=== PATIENT | female | born 1955 | race Caucasian/White ===

== ENCOUNTER 2017-03-18 14:51 | Emergency (ER) | payer OTHER ==
[~2017-03-18] VITALS: Ht 157.5 cm; Wt 45.0 kg
[~2017-03-18 14:51] MED LIST: ALENDRONATE70 MG PO; AMITRIPTYLIN25 MG PO; AMOX/K CLAV875 M1 PO; AMOXICILLIN/CL875 MG PO; AMOXICILLIN500 MG OR; AUGMENTIN875TAB PO; BACTRIM DS1 TAB PO; BONIVA150 MG OR; CIPRO500 MG OR; CIPRO500 MG PO; CIPROFLOXACN500 MG PO; CRESTOR10 MG OR; CRESTOR10 MG PO; CRESTOR20 MG PO; DARVOCET-N 100100 MG OR; DEPO-MEDROL80 MG/ML IM; DOXYCYCL HYC100 M1 OR; DOXYCYCL HYC100 MG PO; FLEXERIL10 MG PO; FLEXERIL5 M1 PO; FLUZONE SPLT1 M1 IM; KEFLEX500 M1 PO; KEFLEX500 MG PO; LORTAB 5 OR; LORTAB5 PO; MEDDOSEPAK PO; MELOXICAM7.5 MG PO; MOBIC7.5 MG PO; MUPIROCIN2 % EX; PRAVASTATIN SOD20 MG PO; PRAVASTATIN20 MG PO; PROAIR HFA IN; RANITIDINE150 M1 PO; SERAQUIL; SEROQUEL25 MG PO; SOLU-MEDROL125 MG IM; SYMBICORT1 AE1 IN; TESSALON200 MG PO; TRAMADOL HYDROC50 MG PO; TRIAMINIC COLD & COU PO; ULTRAM50 M1 PO; ZANTAC SYRUP15 MG/ML PO; ZANTAC150 M1 OR; ZANTAC150 M1 PO; ZANTAC150 M2 OR; ZITHROMAX250 MG PO; ZOFRAN ODT4 MG PO
[2017-03-18] MEDS ORDERED: BACTRIM DS1 TAB PO (15:11)
[2017-03-18] MEDS ORDERED: TRAMADOL HYDROC50 MG PO (15:11)
[2017-03-18 15:35] VITALS: BP 123/60
== END 2017-03-18 15:40 | disposition home or self-care (01) | DRG 603 ==
LOC: ED 14:51
PROC: 0H98XZZ Drainage of Buttock Skin, External Approach (ICD-10-PCS; principal; 2017-03-18)
DX: L02.31 Cutaneous abscess of buttock (principal); K27.9 Peptic ulcer, site unspecified, unspecified as acute or chronic, without hemorrhage or perforation; E78.5 Hyperlipidemia, unspecified; K21.9 Gastro-esophageal reflux disease without esophagitis; J45.909 Unspecified asthma, uncomplicated; F17.210 Nicotine dependence, cigarettes, uncomplicated

== ENCOUNTER 2017-03-19 20:00 | Emergency (ER) | payer OTHER ==
[~2017-03-19] VITALS: Ht 157.5 cm; Wt 57.0 kg
[2017-03-19 20:37] VITALS: BP 128/93
== END 2017-03-19 20:45 | disposition home or self-care (01) | DRG 603 ==
LOC: ED 20:00
DX: L02.31 Cutaneous abscess of buttock (principal); E78.5 Hyperlipidemia, unspecified; K21.9 Gastro-esophageal reflux disease without esophagitis; F17.210 Nicotine dependence, cigarettes, uncomplicated

== ENCOUNTER 2017-11-29 10:44 | Emergency (ER) | payer OTHER ==
[~2017-11-29] VITALS: Ht 157.5 cm; Wt 59.0 kg
[2017-11-29 13:35] LABS: INFLUENZA A NONE DETECTED (NONE DETECT); INFLUENZA B NONE DETECTED (NONE DETECT)
[2017-11-29 13:37] LABS: ALBUMIN 3.8 g/dL (3.2-5.0); ALKALINE PHOSPHATASE 79 u/l (38-126); ANION GAP 17 (6-22 (CALC)); BILIRUBIN, TOTAL 0.5 mg/dL (0.0-1.4); BUN 18 mg/dL (8-23); BUN/CREATININE RATIO 23 (12-20 (CALC)); CARBON DIOXIDE 24 mmol/l (22-30); CHLORIDE 108 mmol/l (95-108); CREATININE 0.8 mg/dL (0.5-1.0); GFR > 60 ML/MIN (>=60 (CALC)); GFR FOR AFR.AMER. > 60 ML/MIN (>=60 (CALC)); GLUCOSE 117 mg/dL (82-115); POTASSIUM 4.8 mmol/l (3.5-5.1); SGOT/AST 39 u/l (9-36); SGPT/ALT 42 u/l (11-66); SODIUM 144 mmol/l (137-146); TOTAL PROTEIN 6.6 g/dL (6.3-8.2)
[2017-11-29 13:42] LABS: RED BLOOD COUNT 4.15 mill/uL (4.20-5.60)
[2017-11-29 13:43] LABS: HEMATOCRIT 37.7 % (37.0-47.0); HEMOGLOBIN 12.5 g/dl (12.0-16.0); LYMPH% 22 % (15-41); MEAN CELL VOLUME 90.8 fL CALC (80.0-100.0); MEAN CORPUSCULAR HGB 30.1 pG CALC (26.0-32.0); MEAN CORPUSCULAR HGB CONC 33.2 g/L CALC (32.0-36.0); MONO% 9 % (2-13); NEUT% 69 % (42-76); PLATELET COUNT 411 thou/uL (130-400)
[2017-11-29] MEDS ORDERED: DOXYCYC MONO100 M2 PO (14:24)
[2017-11-29 14:35] VITALS: BP 125/92
== END 2017-11-29 14:35 | disposition home or self-care (01) | DRG 202 ==
LOC: ED 10:44
PROVIDERS: Family Medicine
DX: J20.9 Acute bronchitis, unspecified (principal); J44.0 Chronic obstructive pulmonary disease with (acute) lower respiratory infection; F17.210 Nicotine dependence, cigarettes, uncomplicated; R09.81 Nasal congestion; R06.02 Shortness of breath; Z72.89 Other problems related to lifestyle

== ENCOUNTER 2017-12-01 02:16 | Inpatient (IN) | payer OTHER ==
[~2017-12-01] VITALS: Ht 157.5 cm; Wt 60.0 kg
[~2017-12-01 02:16] MED LIST changes: +DOXYCYC MONO100 M2 PO
--- NOTE | 2017-12-01 02:18 | NUR ---
PATIENT TO ROOM 14 VIA EMS STRETCHER. PATIENT UNDRESSED INTO A GOWN, PLACED ON MONITOR. TRIAGE COMPELETED AT BEDSIDE. AWAITING MD HINTON.
--- NOTE | 2017-12-01 02:19 | NUR ---
PT. WITH C/O FEELING SOB SINCE THE LAST HURRICIANE. O2 SAT ON RA 84-85%. BILATERAL LUNG COTTER ARE RALES RHONCHI AND WHEEZES. PT. STATES SHE QUIT SMOKING APPROX. 2 DAYS AGO.
[2017-12-01 02:52] LABS: HEMATOCRIT 42.6 % (37.0-47.0); HEMOGLOBIN 13.7 g/dl (12.0-16.0); IMMATURE GRANULOCYTES 0.3 % (0.0-1.0); MEAN CELL VOLUME 90.6 fL CALC (80.0-100.0); MEAN CORPUSCULAR HGB 29.1 pG CALC (26.0-32.0); MEAN CORPUSCULAR HGB CONC 32.2 g/L CALC (32.0-36.0); NEUT# 7.25 thou/uL (2.00-7.15); RED BLOOD COUNT 4.7 mill/uL (4.20-5.60); RED CELL DISTRI WIDTH 14.3 % (11.5-15.5)
--- NOTE | 2017-12-01 02:53 | NUR ---
iv solu-medrol given as per md order.
--- NOTE | 2017-12-01 02:56 | NUR ---
RESP. THERAPIST IN ROOM TO ADMINISTER BREATHING TX.
--- NOTE | 2017-12-01 02:56 | NUR ---
BGREATHING TREATMENT GIVEN. BREATHING TECH. FOR GOOD DEPOSITION TO THE LUNGS.
[2017-12-01 02:59] LABS: ALBUMIN 4.3 g/dL (3.2-5.0); ALKALINE PHOSPHATASE 87 u/l (38-126); ANION GAP 18 (6-22 (CALC)); BILIRUBIN, TOTAL 0.5 mg/dL (0.0-1.4); BUN 20 mg/dL (8-23); BUN/CREATININE RATIO 23 (12-20 (CALC)); CALCIUM 9.6 mg/dL (8.4-10.2); CARBON DIOXIDE 19 mmol/l (22-30); CHLORIDE 112 mmol/l (95-108); CREATININE 0.9 mg/dL (0.5-1.0); GFR > 60 ML/MIN (>=60 (CALC)); GFR FOR AFR.AMER. > 60 ML/MIN (>=60 (CALC)); GLUCOSE 139 mg/dL (82-115); POTASSIUM 4.2 mmol/l (3.5-5.1); SGOT/AST 65 u/l (9-36); SGPT/ALT 57 u/l (11-66); SODIUM 145 mmol/l (137-146); TOTAL PROTEIN 7.6 g/dL (6.3-8.2)
--- NOTE | 2017-12-01 03:00 | NUR ---
HARSH PRODUCTIVE COUGH NOTED AT THIS TIME.
[2017-12-01 03:08] LABS: MYOGLOBIN 70 ng/mL (0 - 62)
--- NOTE | 2017-12-01 03:22 | NUR ---
PT. PLACED ON 2 LIT/NC. O2 SAT 94% AT THIS TIME.
--- NOTE | 2017-12-01 04:08 | NUR ---
IV ABT'S STARTED PER MD ORDER.
--- NOTE | 2017-12-01 04:18 | NUR ---
Admission Note Report Given to: CHINTAN GONZÁLES Transported by: Wheelchair X Stretcher Transported with: X Nurse Transporter X Patent IV X O2 X Process Lead
--- NOTE | 2017-12-01 04:25 | NUR ---
PT. TRANSFERED TO ICU BED 6, IV ABT. INFUSING WELL, NO REDNESS OR EDEMA NOTED.
--- NOTE | 2017-12-01 04:30 | NUR ---
RECEIVED FROM ER VIA STRETCHER ACCOMPANIED BY JIMENA MARIE, AMBULATING TO STANDING SCALE THEN TO BED WITH STEADY GAIT A/O X3. O2 @2L VIA NC, BREATHING THROUGH MOUTH, ENCOURAGED TO BREATH TRHOUGH NOSE AND OUT THROUGH MOUTH, RESPIRATIONS 24, O2 SAT 94%. ZITHROMAX INFUSING TO LAC WITH NO COMPLICATIONS. ORIENTED TO BED CONTROLS AND CALL LIGHT FOR ASSISTANCE. DX PNEUMONIA, LUNG SOUNDS CORSE IN THE BASES BILAT. PO FLUIDS IN REACH. C/O INDIGESTION ORDERS FOR [place] RECEIVED.
[2017-12-01 04:44] VITALS: BP 148/95
--- NOTE | 2017-12-01 05:30 | NUR ---
SENIOR FORMULATION SCIENTIST ATTEMPTED TO DRAW BLOOD CULTURES AND LACTIC ACID WITH NO SUCCESS, THIS WRITTER STUCK PT X1 NO SUCCESS, NO RN ALSO ATTEMPTED WITH NO SUCCESS. PT IS ANXIOUS C/O INDIGESTION REQUESTING THAT BLOOD BE DRAWN AT A LATER TIME WHEN SHE IS CALM. MAALOX PROVIDED AT 0537, WILL CONTINUE TO MONITOR.
[2017-12-01 07:20] VITALS: BP 137/93
--- NOTE | 2017-12-01 07:20 | NUR ---
PT LAYING IN BED RESTING WITH EYES CLOSED, AROUSES EASILY TO VERBAL STIMULI, PT DENIES ANY PAIN, RESP. EVEN AND UNLABORED, AFEBRILE TEMP 98, HR 84, RESP. 20, BP 137/93, O2 92% ON 2L VIA NC, COARSE LUNG SOUNDS IN ALL COTTER, STRONG RADIAL PULSES, WEAK PEDAL PULSES, 20G LAC IV SALINE LOCKED, AM ASSESSMENT COMPLETE, SEE INTERVENTIONS, SAFETY MEASURES REINFORCED, CALL CUEVAS WITHIN REACH
--- NOTE | 2017-12-01 07:25 | NUR ---
LAB AT BEDSIDE
--- NOTE | 2017-12-01 07:30 | NUR ---
SETUP ASSISTANCE PROVIDED WITH ANDREE JONES
--- NOTE | 2017-12-01 08:20 | NUR ---
PT REPEATEDLY REMOVES O2, PT EDUCATED ON THE IMPORTANCE OF THE O2, PT VERBALIZES UNDERSTANDING, WILL REINFORCE NEEDED
[2017-12-01 08:27] LABS: CHOLESTEROL HDL RATIO 3.5 (<4.4 (CALC))
--- NOTE | 2017-12-01 09:10 | NUR ---
DR WOODALL AT BEDSIDE DISCUSSING PLAN OF CARE
--- NOTE | 2017-12-01 09:45 | NUR ---
VISITOR AT BEDSIDE
--- NOTE | 2017-12-01 10:15 | NUR ---
PT TO CT VIA WC ACCOMPANIED BY NURSE AND HIP HOP DANCE INSTRUCTOR
--- NOTE | 2017-12-01 10:30 | NUR ---
PT RETURNED TO THE UNIT VIA WC ACCOMPANIED BY NURSE
--- NOTE | 2017-12-01 11:35 | NUR ---
SETUP ASSISTANCE PROVIDED WITH ANDREE JONES
[2017-12-01 12:00] VITALS: BP 136/94
--- NOTE | 2017-12-01 12:35 | NUR ---
PT ASSISTED WITH MINIMAL ASSISTANCE TO THE BSC, PT COMPLAINS OF SOB DISPLAYING NO S/S OF DISTRESS AND CONTINUES TO TALK, PT CONTINUES TO REMOVE O2 AND IS REMINDED OF THE IMPORTANCE OF THE O2, PT VERBALIZES UNDERSTAND, CALL CUEVAS WITHIN REACH
--- NOTE | 2017-12-01 13:11 | NUR ---
VISITOR AT BEDSIDE
[2017-12-01 15:19] VITALS: BP 145/101
--- NOTE | 2017-12-01 15:33 | NUR ---
PT ARRIVED FROM ICU VIA WC ACCOMPANIED BY STAFF. AT 1530 ALL BELONGINGS. CONTINUE TO OSBERVE AND MONITOR.
[2017-12-01 18:15] VITALS: BP 148/100
--- NOTE | 2017-12-01 21:45 | NUR ---
PT RESTING IN BED IN HIGH FOWLERS POSITION;PT COMPLAINS OF RIGHT UPPER ABDOMINAL PAIN RATING 6/10 ON THE PAIN SCALE AND REQUESTS PAIN MEDICATION;PT MEDICATED WITH MORPHINE 1MG IVP;RESPIRATIONS EVEN AND UNLABORED ON 02 @2L VIA NC;SATS @ 96%;#20G TO LAC FLUSHED AND PATENT;ASSESSMENT COMPLETED;A&O X3;SKIN INTACT;CONTACT PRECAUTIONS IN PLACE FOR HX OF MRSA;PEDAL PULSES STRONG;SAFETY PRECAUTIONS REINFORCED AND PT EDUCATED TO CALL FOR ASSISTANCE IF NEEDED;CALL LIGHT IN REACH;WILL CONTINUE TO MONITOR
--- NOTE | 2017-12-01 22:13 | NUR ---
PT IN BED COMPLAINING OF UNCONTROLLED COUGHING; NOTIFED AND NEW ORDER RECEIVED
--- NOTE | 2017-12-02 00:05 | NUR ---
PT APPEARS TO BE SLEEPING IN HIGH FOWLERS POSITION;NON-PRODUTIVE COUGH NOTED COMING FROM THE ROOM AT TIMES;RESPIRATIONS EVEN AND UNLABORED,SHALLOW ON 02 @ 2L VIA NC;NO S/S OF DISTRESS NOTED;IV FLUIDS INFUSING WELL TO LAC;FALL PRECAUTIONS IN PLACE WITH CALL LIGHT IN REACH;WILL CONTINUE TO MONITOR
--- NOTE | 2017-12-02 02:13 | NUR ---
PT REQUESTS BREATHING TX;UPON RT ENTERING THE ROOM PT IS IN FULL PANIC;DIAPHORETIC,LABORED BREATHING;STATING "I CAN'T BREATH";BREATHING TREATMENT AND 1MG IVP MORPHINE ADMINISTERED;02 SATS @ 93% ON OXYGEN AT 2L,TEMP 97.3;PURSED LIP BREATHING TECHNIQUE RE-EDUCATED AND PT DEMONSTARTED UNDERSTANDING;WILL CONTINUE TO MONITOR CLOSELY
--- NOTE | 2017-12-02 02:40 | NUR ---
PT APPEARS TO BE SLEEPING IN HIGH FOWLERS POSITION;RESPIRATIONS EVEN AND UNLABORED ON OXYGEN;FALL PRECAUTIONS IN PLACE WITH CALL LIGHT IN REACH;WILL CONTINUE TO MONITOR
--- NOTE | 2017-12-02 05:20 | NUR ---
PT RESTING IN SEMI FOWLERS POSITION;PT REPORTS FEELING BETTER THAN SHE DID LAST NIGHT BUT ALSO STATES THAT SHE FEELS LIKE SOMETHING IS "STUCK" IN HER THROAT;IV FLUIDS INFUSING WELL TO LAC;RESPIRATIONS EVEN AND UNLABORED ON OXYGEN AT THIS TIME;CONTACT PRECAUTIONS IN PLACE FOR HX MRSA;FALL PRECAUTIONS IN PLACE WITH CALL LIGHT IN REACH;WILL CONTINUE TO MONITOR
[2017-12-02 05:39] LABS: HEMATOCRIT 39.8 % (37.0-47.0); HEMOGLOBIN 12.4 g/dl (12.0-16.0); IMMATURE GRANULOCYTES 0.8 % (0.0-1.0); MEAN CELL VOLUME 93.2 fL CALC (80.0-100.0); MEAN CORPUSCULAR HGB CONC 31.2 g/L CALC (32.0-36.0); NEUT# 8.37 thou/uL (2.00-7.15); RED BLOOD COUNT 4.27 mill/uL (4.20-5.60); RED CELL DISTRI WIDTH 14.7 % (11.5-15.5)
[2017-12-02 05:41] LABS: URINE BILIRUBIN - DIPSTICK NEGATIVE (NEGATIVE); URINE BLOOD DIPSTICK NEGATIVE (NEGATIVE); URINE COLOR YELLOW; URINE GLUCOSE - DIPSTICK NEGATIVE (NEGATIVE); URINE KETONE TRACE mg/dL (NEGATIVE); URINE LEUK ESTERASE NEGATIVE (NEGATIVE); URINE NITRITE - DIPSTICK NEGATIVE (Negative); URINE PROTEIN - DIPSTICK 100 mg/dL (NEG-TRACE); URINE SPECIFIC GRAVITY >=1.030; URINE UROBILINOGEN - DIPSTICK 0.2 E.U./dL (0.2)
[2017-12-02 05:45] VITALS: BP 123/89
[2017-12-02 06:04] LABS: ANION GAP 21 (6-22 (CALC)); BUN 20 mg/dL (8-23); BUN/CREATININE RATIO 27 (12-20 (CALC)); CALCIUM 8.5 mg/dL (8.4-10.2); CARBON DIOXIDE 18 mmol/l (22-30); CHLORIDE 114 mmol/l (95-108); CREATININE 0.7 mg/dL (0.5-1.0); GFR > 60 ML/MIN (>=60 (CALC)); GFR FOR AFR.AMER. > 60 ML/MIN (>=60 (CALC)); GLUCOSE 156 mg/dL (82-115); MAGNESIUM 2.3 mg/dL (1.6-2.3); POTASSIUM 4.8 mmol/l (3.5-5.1); SODIUM 148 mmol/l (137-146)
[2017-12-02 06:54] LABS: URINE CLARITY CLEAR
[2017-12-02 07:06] LABS: URINE RBC 0-2 RBC/hpf (0-5); URINE SQUAMOUS EPITHELIAL CELL RARE EPI/hpf (0-FEW); URINE WBC 0-2 WBC/hpf (0-5)
[2017-12-02 07:35] VITALS: BP 131/99
--- NOTE | 2017-12-02 07:35 | NUR ---
ASSESSMENT IS COMPLETED: IV SITE IS FREE FROM REDNESS OR EDEMA. PT C/O NAUSEA FROM SMELL OF COFFEE. ASKED THAT HER DOOR BE SHUT. CLOSED THE DOOR. FAMILY IN THE ROOM DRINKING COFFEE. CONTINUE TO OBSERVE AND MONITOR.
--- NOTE | 2017-12-02 10:35 | NUR ---
PT WAS HAVING A PANIC ATTACK. WAS GIVEN A BAG TO BREATHE IN TO CALM DOWN. TIERRA HASSAN ON THE UNIT. IV SITE HAD STARTED TO SWELL AND STOPPED INFUSION. CONTINUE TO OBSERVE AND MONITOR.
--- NOTE | 2017-12-02 10:50 | NUR ---
PT STARTED TO CALM DOWN A LITTLE BIT WITH BREATHING IN THE BAG AND HAVING O2 IN PLACE.INSTRUCTED PT TO RELAX WE HAVE TO RESTART AN IV . 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 SHE STOPPED THRASHING AROUND. CONTINUE TO OSBERVE AND MONITOR.,
--- NOTE | 2017-12-02 11:48 | NUR ---
PT'S TRAY BROUGHT IN AND WAS NOT RESPONDING TO STAFF. CALLED CLINICAL SUPPORT AT 1152 AND ALREADY BEGAN STERNAL RUB AND CALLING PT;S NAME AND STARTED CPR AND CALLED 222 AT 1152 NO RESPONSE FROM PT AND CLINICAL SUPPORT AND CPR WAS BEING ADMINISTERED.
--- NOTE | 2017-12-02 12:00 | NUR ---
PT WAS BEING CODED. AT THIS TIME. STAFF IN THE ROOM,
--- NOTE | 2017-12-02 14:07 | NUR ---
EYE BANK CALLED BACK AND STATED PT NOT SUITABLE FOR THE EYE BANK. WAS CALLED AT 1348 FOR REFERRAL. CALLED [facility] AT 1412 FOR PT ASSOCIATE EDITOR.
--- NOTE | 2017-12-02 14:58 | NUR ---
[facility] PICKED UP PT. IV SITES AND ORAL TUBE TAKEN OUT WITH SMALL AMOUNT OF SERO DRAINAGE FROM IV SITE IN THE LEG
== END 2017-12-02 12:13 | disposition expired | DRG 190 ==
LOC: ED 02:16 → ED-I 03:30 → ED 03:56 → MS2 03:57 → ICU 03:57 → MS2 15:11
PROVIDERS: Emergency Medicine; Nurse Practitioner Family; ADMIT Internal Medicine; ATTEND Internal Medicine
PROC: 5A12012 Performance of Cardiac Output, Single, Manual (ICD-10-PCS; principal; 2017-12-02)
DX: J44.0 Chronic obstructive pulmonary disease with (acute) lower respiratory infection (principal); J18.9 Pneumonia, unspecified organism; I21.9 Acute myocardial infarction, unspecified; I26.99 Other pulmonary embolism without acute cor pulmonale; C34.31 Malignant neoplasm of lower lobe, right bronchus or lung; J44.1 Chronic obstructive pulmonary disease with (acute) exacerbation; E78.5 Hyperlipidemia, unspecified; F17.210 Nicotine dependence, cigarettes, uncomplicated; R59.0 Localized enlarged lymph nodes; Z88.8 Allergy status to other drugs, medicaments and biological substances
CPT/HCPCS: Q9967